=== PATIENT | male | born 1970 | race Caucasian/White ===

== ENCOUNTER 2016-10-15 14:09 | Inpatient (IN) | payer OTHER ==
[~2016-10-15] VITALS: Ht 170.2 cm; Wt 57.4 kg
[2016-10-15 15:13] LABS: BASOPHIL % 0.6 % (0-2); CALCIUM 9.7 mg/dL (8.5-10.1); CARBON DIOXIDE 24.8 mmol/L (21-32); CHLORIDE SERUM 105 mmol/L (98-107); CREATININE SERUM 0.9 mg/dL (0.7-1.3); GFR1 > 60 mL/min; GLUCOSE SERUM 92 mg/dL (74-106); PLATELET COUNT 226 x10^3mcL (130-400); POTASSIUM SERUM 3.4 mmol/L (3.5-5.1); SODIUM SERUM 143 mmol/L (136-145)
[2016-10-15 15:17] LABS: ALBUMIN 4.4 g/dL (3.4-5.0); ALKALINE PHOSPHATASE 92 U/L (46-116); ALT/SGPT 45 U/L (16-63); AST/SGOT 58 U/L (15-37)
[2016-10-15 15:19] LABS: TOTAL PROTEIN, SERUM 8.8 g/dL (6.4-8.2)
[2016-10-15 16:13] LABS: CHOLESTEROL/HDL RATIO 3.2; MAGNESIUM 2.5 mg/dL (1.8-2.4); PHOSPHOROUS 2.2 mg/dL (2.5-4.9)
[2016-10-15 16:25] LABS: T3 TOTAL 0.85 ng/mL
[2016-10-15 16:40] LABS: FREE THYROXINE INDEX 5.4 ug/dL (1.4-4.5); T4(THYROXINE) 14.3 ug/dL (4.7-13.3)
[2016-10-15 16:41] LABS: FREE T4 1.84 ng/dL (0.76-1.46)
[2016-10-15 17:20] VITALS: BP 154/100
[2016-10-15 17:27] VITALS: Ht 170.2 cm; Wt 57.4 kg
[2016-10-15 21:24] VITALS: BP 140/99
[2016-10-16 05:43] LABS: UA SPECIFIC GRAVITY 1.025 (1.005-1.035); microscopic required? YES; urine erythrocyte TRACE (NEGATIVE)
[2016-10-16 05:54] LABS: AMPHETAMINE QUAL UR NONE DETECTED (NEG <=1000)
[2016-10-16 06:00] VITALS: BP 125/86
[2016-10-16 06:42] LABS: BASOPHIL % 0.4 % (0-2); PLATELET COUNT 179 x10^3mcL (130-400); RED CELL DISTRIBUTION WIDTH 12.2 % (11.5-14.5)
[2016-10-16 09:00] VITALS: BP 146/93
[2016-10-16 10:16] LABS: CALCIUM 8.7 mg/dL (8.5-10.1); CHLORIDE SERUM 107 mmol/L (98-107); GFR1 > 60 mL/min; GLUCOSE SERUM 94 mg/dL (74-106); SODIUM SERUM 146 mmol/L (136-145)
[2016-10-16 18:27] VITALS: BP 123/88
[2016-10-16 20:28] VITALS: BP 134/86
[2016-10-17 05:11] VITALS: BP 141/86
[2016-10-17 06:35] LABS: BASOPHIL % 0.6 % (0-2); PLATELET COUNT 178 x10^3mcL (130-400); RED CELL DISTRIBUTION WIDTH 12.2 % (11.5-14.5)
[2016-10-17 06:41] LABS: CALCIUM 8.5 mg/dL (8.5-10.1); CARBON DIOXIDE 24.2 mmol/L (21-32); CHLORIDE SERUM 108 mmol/L (98-107); CREATININE SERUM 0.8 mg/dL (0.7-1.3); GFR1 > 60 mL/min; GLUCOSE SERUM 79 mg/dL (74-106); SODIUM SERUM 144 mmol/L (136-145)
[2016-10-17 07:29] VITALS: BP 123/81
[2016-10-17 13:14] VITALS: BP 142/93
[2016-10-17 17:42] VITALS: BP 137/84
[2016-10-17 21:02] VITALS: BP 135/89
[2016-10-18 07:16] LABS: CARBON DIOXIDE 20.4 mmol/L (21-32); CHLORIDE SERUM 101 mmol/L (98-107); CREATININE SERUM 0.8 mg/dL (0.7-1.3); GFR1 > 60 mL/min; GLUCOSE SERUM 71 mg/dL (74-106); POTASSIUM SERUM 3.9 mmol/L (3.5-5.1); SODIUM SERUM 136 mmol/L (136-145)
[2016-10-18 07:34] LABS: BASOPHIL % 0.6 % (0-2); PLATELET COUNT 222 x10^3mcL (130-400); RED CELL DISTRIBUTION WIDTH 11.8 % (11.5-14.5)
[2016-10-18 10:00] VITALS: BP 132/86
[2016-10-18 14:00] VITALS: BP 123/83
[2016-10-18 18:00] VITALS: BP 120/82
[2016-10-18 22:29] VITALS: BP 134/84
[2016-10-19 07:01] VITALS: BP 124/72
== END 2016-10-20 08:50 | DRG 750 ==
LOC: ED 14:09 → DU 15:45
PROVIDERS: Emergency Medicine; Family Medicine; ADMIT Family Medicine
DX: F20.9 Schizophrenia, unspecified (principal); N17.0 Acute kidney failure with tubular necrosis; G93.49 Other encephalopathy; E83.41 Hypermagnesemia; E83.39 Other disorders of phosphorus metabolism; Z68.1 Body mass index [BMI] 19.9 or less, adult
CPT/HCPCS: 83880; 84439; G0480; J1630; J2060; J3475; J7030; Q0092